=== PATIENT | female | born 1990 | race Caucasian/White ===

== ENCOUNTER 2023-10-11 17:17 | Emergency (ER) | payer OTHER ==
[~2023-10-11] VITALS: Ht 167.6 cm; Wt 66.7 kg
[2023-10-11] MEDS ORDERED: IBUP-1957 PO (18:27)
[2023-10-11] MEDS ORDERED: IBUPROFEN 800 MG TABLET ONE (18:27)
[2023-10-11] MEDS: IBUPROFEN 800 MG TABLET PO ONE (18:28)
[2023-10-11 19:46] LABS: *URINE HCG, QUAL NEGATIVE (NEGATIVE)
[2023-10-11 22:04] VITALS: BP 119/78; TEMP 97.8; O2SAT 97
== END 2023-10-11 22:00 | disposition home or self-care (01) ==
LOC: ER 17:18
DX: S16.1XXA Strain of muscle, fascia and tendon at neck level, initial encounter (principal); S06.0X0A Concussion without loss of consciousness, initial encounter; S40.012A Contusion of left shoulder, initial encounter; R10.2 Pelvic and perineal pain; Z79.1 Long term (current) use of non-steroidal anti-inflammatories (NSAID); V43.52XA Car driver injured in collision with other type car in traffic accident, initial encounter; Y93.89 Activity, other specified; Y92.410 Unspecified street and highway as the place of occurrence of the external cause; Y99.8 Other external cause status
CPT/HCPCS: 70450; 72125; 72131; 73030; 84703; A4606; A4663